=== PATIENT | male | born 1985 | race Caucasian/White ===

== ENCOUNTER 2019-02-15 12:56 | Observation (INO) ==
[2019-02-15] MEDS ORDERED: *HR* LORazepam 1 MG TABLET PO ONE (13:30)
[2019-02-15 13:45] LABS: Basophils % 0.3 %; Eosinophils % 0.4 %; Hematocrit 44.2 % (37.5-50.1); Hemoglobin 15.8 g/dL (12.9-16.9); Immature Granulocytes % 0.2 % (0-4); Lymphocytes # 2.2 K/mcL (0.6-4.6); Lymphocytes % 24.2 %; Mean Corpuscular HGB Conc 35.7 g/dL (31.6-35.5); Mean Corpuscular Hemoglobin 31.9 pg (28.0-33.3); Mean Corpuscular Volume 89.1 fL (83.0-100.0); Mean Platelet Volume 9.9 fL (9.4-12.4); Monocytes # 0.9 K/mcL (0.0-1.3); Monocytes % 9.2 %; Neutrophils # 6.1 K/mcL (1.6-8.9); Platelet Count 253 K/mcL (140-400); Red Blood Count 4.96 M/mcL (4.19-5.50); Red Cell Distribution Width 12.8 % (11.5-14.5); Segmented Neutrophils % 65.7 %
[2019-02-15 13:56] LABS: Bilirubin,Urine Negative (Negative); Blood,Urine Negative (Negative); Clarity,Urine Clear (Clear); Color,Urine Yellow (Yellow); Glucose,Urine (UA) Normal (Normal); Ketones,Urine 15 mg/dL (Negative); Leukocyte Esterase,Urine Small (Negative); Nitrite,Urine Negative (Negative); Protein,Urine 30 mg/dL (Neg-Trace); Specific Gravity,Urine 1.016 (1.010-1.025); Urobilinogen,Urine Normal (Normal)
[2019-02-15 14:01] LABS: Amphetamine Screen,Urine Positive ng/mL (Cutoff=1000); Barbiturate Screen,Urine Negative ng/mL (Cutoff=200); Benzodiazepines Screen,Urine Negative ng/mL (Cutoff=200); Cannabinoid Screen,Urine Negative ng/mL (Cutoff = 50); Cocaine Screen,Urine Negative ng/mL (Cutoff= 300); Opiate Screen,Urine Negative ng/mL (Cutoff=300); Phencyclidine Screen,Urine Negative ng/mL (Cutoff=25)
[2019-02-15 14:02] LABS: Bacteria,Urine None Seen per hpf (None-Few); Hyaline Casts,Urine None Seen per lpf (None-Few); RBC,Urine 0-3 per hpf (0-3); Squamous Epithelial Cell,Urine Few per lpf (None-Few); WBC,Urine 0-3 per hpf (0-3)
[2019-02-15 14:03] LABS: Acetaminophen < 10 mcg/mL (10-20); BUN/Creatinine Ratio 14 (6-26); Blood Urea Nitrogen 10 mg/dL (6-20); Carbon Dioxide 25 mEq/L (23-29); Chloride 99 mEq/L (98-107); Ethanol < 10 mg/dL (Less than 10); Glucose 104 mg/dL (70-105); Osmolality,Calculated 279 (280-300); Potassium 3.9 mEq/L (3.5-5.1); Salicylate < 2.5 mg/dL (15.0-30.0); Sodium 135 mEq/L (136-145); eGFR For Non-African Americans > 60 (> 60)
--- NOTE | 2019-02-15 14:06 | Emergency Department Note ---
Disposition Clinical Impression: Acute anxiety, Hallucinations Depression Qualifiers: Depression Type: unspecified Qualified Code(s): F32.9 - Major depressive disorder, single episode, unspecified Disposition: Admitted As Inpatient Condition: Good Time of Disposition: 17:51 General Adult HPI - General Chief complaint: ED Psychiatric Symptoms Stated complaint: Halluncinations Time Seen by Provider: 02/15/19 13:10 Source: patient Limitations: no limitations Nursing Notes Reviewed: Yes Vital Signs Reviewed: Yes - History of Present Illness HPI Narrative: Male patient with a history of snorting "ice" presenting to the emergency depa rtment complaining of feeling anxious. He presents with his mother. He states that he was clean and then used again yesterday. She reports that since then he has felt depressed. He denies any suicidal or homicidal ideation currently. He has not been clinically diagnosed with depression and does not take medication for it. He does report the last night he had feeling like his heart was racing right after he used however he is not felt that since. He denies any chest pain. He does report hallucinations. He states that he knows that they are hallucinations. He reports seeing people in trees entering [employer]. Patient's mother presents with them as well. He has been very conversant with her. He is redirectable however appears very agitated in the room. He is frequently standing up and walking around. He does however sit on the bed after you discussing this with him. He states that he would like to talk to our psychiatric team here at this time for his possible depression. We will do a psychiatric workup as well as a EKG and chest x-ray. We will provide patient with Ativan at this time for his agitation. Mother states that she does feel that he is safe at home. States that she does not think that he has a harm to his child who is at the house with him. However she is concerned about the depression as well like for him to speak to the psychiatric team. Pain Scale: 2 - Related Data Home Medications Medication Instructions Recorded Confirmed LevETIRAcetam [Keppra] 500 mg PO 1-2XD 06/30/17 06/30/17 Allergies Allergy/AdvReac Type Severity Reaction Status Date / Time No Known Allergies Allergy Verified 06/30/17 19:42 All systems ED: reviewed and negative except as stated. Review of Systems: As Per HPI Constitutional: Denies: fever Cardiovascular: Reports: palpitations. Denies: chest pain, syncope Respiratory: Denies: cough, dyspnea Gastrointestinal: Denies: abdominal pain, nausea, vomiting, diarrhea Musculoskeletal: Denies: back pain, neck pain Psychiatric: Reports: anxiety, depression, visual hallucinations. Denies: suicidal thoughts, homicidal thoughts Past Medical History - Past Medical History Attestation: Yes The following information was validated with the patient. Source: patient Medical history: Reports: seizures Surgical history: Reports: no surgical history Psychiatric history: Reports: no psych history - Social History Smoking Status: Current every day smoker Smokeless Tobacco Status: No Alcohol use: Reports: occasionally Drug use: Reports: marijuana, methamphetamine Physical Exam - General Limitations: no limitations General appearance: alert, in no apparent distress, anxious - Head Head exam: atraumatic, normocephalic, normal inspection - Eye Eye exam: Present: normal appearance, PERRL, EOMI - ENT ENT exam: normal exam, normal oropharynx, mucous membranes moist - Neck Neck exam: Present: normal inspection, full ROM, trachea midline - Chest Chest inspection: Present: normal inspection, symmetric chest wall rise - Respiratory Respiratory exam: Absent: respiratory distress - Extremities Exam Extremities exam: Present: normal inspection, full ROM - Neurological Exam Neurological exam: Present: alert, oriented X3, normal gait - Psychiatric Psychiatric exam: Present: agitated, anxious - Skin Skin exam: Present: warm, dry, intact, normal color. Absent: rash, cyanosis, diaphoresis Course Course Narrative: Patient denying suicidal homicidal ideation but is very pressured in his speech. Initially responded well to 2 of Ativan but then became very agitated again. He was given Zyprexa at that time. This also comp patient well. Lab workup is unremarkable. Ia did evaluate the patient and is requesting admission at this time. I feel this is reasonable. Patient is agreeable with this plan. Vital Signs Temperature 98.4 F 02/15/19 13:14 Pulse Rate 103 02/15/19 13:14 Respiratory Rate 16 02/15/19 13:14 Blood Pressure 117/86 02/15/19 13:14 O2 Sat by Pulse Oximetry 98 02/15/19 13:14 Temperature 98.4 F 02/15/19 13:14 Pulse Rate 103 02/15/19 13:14 Respiratory Rate 16 02/15/19 13:14 Blood Pressure 117/86 02/15/19 13:14 O2 Sat by Pulse Oximetry 98 02/15/19 13:14 Oxygen Delivery Oxygen Delivery Room Air Medical Decision Making - Medical Records Medical records reviewed: Yes I reviewed the patient's medical records. - Lab Data Lab results reviewed: Yes I reviewed the patient's lab results. Result diagrams: 02/15/19 13:31 02/15/19 13:31 Lab Results 02/15/19 02/15/19 02/15/19 Range/Units 13:31 13:31 13:37 WBC 9.2 (4.3-11.1) K/mcL RBC 4.96 (4.19-5.50) M/mcL Hgb 15.8 (12.9-16.9) g/dL Hct 44.2 (37.5-50.1) % MCV 89.1 (83.0-100.0) fL MCH 31.9 (28.0-33.3) pg MCHC 35.7 H (31.6-35.5) g/dL RDW 12.8 (11.5-14.5) % Plt Count 253 (140-400) K/mcL MPV 9.9 (9.4-12.4) fL Immature Gran % 0.2 (0-4) % Seg Neutrophils % 65.7 % Lymphocytes % 24.2 % Monocytes % 9.2 % Eosinophils % 0.4 % Basophils % 0.3 % Neutrophils # 6.1 (1.6-8.9) K/mcL Lymphocytes # 2.2 (0.6-4.6) K/mcL Monocytes # 0.9 (0.0-1.3) K/mcL Eosinophils # 0.0 (0.0-0.6) K/mcL Basophils # 0.0 (0.0-0.2) K/mcL Sodium 135 L (136-145) mEq/L Potassium 3.9 (3.5-5.1) mEq/L Chloride 99 (98-107) mEq/L Carbon Dioxide 25 (23-29) mEq/L BUN 10 (6-20) mg/dL Creatinine 0.71 (0.70-1.30) mg/dL Est GFR ( Amer) > 60 (> 60) Est GFR (Non-Af Amer) > 60 (> 60) BUN/Creatinine Ratio 14 (6-26) Glucose 104 (70-105) mg/dL Calculated Osmolality 279 L (280-300) Calcium 10.0 (8.6-10.3) mg/dL Urine Color Yellow (Yellow) Urine Clarity Clear (Clear) Urine pH 6.0 (5.0-8.0) pH Units Ur Specific [place] 1.016 (1.010-1.025) Urine Protein 30 H (Neg-Trace) mg/dL Urine Glucose (UA) Normal (Normal) mg/dL Urine Ketones 15 H (Negative) mg/dL Urine Blood Negative (Negative) Urine Nitrite Negative (Negative) Urine Bilirubin Negative (Negative) Urine Urobilinogen Normal (Normal) mg/dL Ur Leukocyte Esterase Small H (Negative) Urine Microscopic RBC 0-3 (0-3) per hpf Urine Microscopic WBC 0-3 (0-3) per hpf Ur Squamous Epith Cells Few (None-Few) per lpf Urine Bacteria None Seen (None-Few) per hpf Hyaline Casts None Seen (None-Few) per lpf Salicylates < 2.5 L (15.0-30.0) mg/dL Urine Opiates Screen (Pahdcm=471) ng/mL Acetaminophen < 10 L (10-20) mcg/mL Ur Barbiturates Screen (Uaauok=438) ng/mL Ur Phencyclidine Scrn (Cutoff=25) ng/mL Ur Amphetamines Screen (Iytcpx=2049) ng/mL U Benzodiazepines Scrn (Ezmyla=695) ng/mL Urine Cocaine Screen (Cutoff= 300) ng/mL U Marijuana (THC) Screen (Cutoff = 50) ng/mL Ur Drug Screen Interp Ethyl Alcohol < 10 (Less than 10) mg/dL 02/15/19 Range/Units 13:37 WBC (4.3-11.1) K/mcL RBC (4.19-5.50) M/mcL Hgb (12.9-16.9) g/dL Hct (37.5-50.1) % MCV (83.0-100.0) fL MCH (28.0-33.3) pg MCHC (31.6-35.5) g/dL RDW (11.5-14.5) % Plt Count (140-400) K/mcL MPV (9.4-12.4) fL Immature Gran % (0-4) % Seg Neutrophils % % Lymphocytes % % Monocytes % % Eosinophils % % Basophils % % Neutrophils # (1.6-8.9) K/mcL Lymphocytes # (0.6-4.6) K/mcL Monocytes # (0.0-1.3) K/mcL Eosinophils # (0.0-0.6) K/mcL Basophils # (0.0-0.2) K/mcL Sodium (136-145) mEq/L Potassium (3.5-5.1) mEq/L Chloride (98-107) mEq/L Carbon Dioxide (23-29) mEq/L BUN (6-20) mg/dL Creatinine (0.70-1.30) mg/dL Est GFR ( Amer) (> 60) Est GFR (Non-Af Amer) (> 60) BUN/Creatinine Ratio (6-26) Glucose (70-105) mg/dL Calculated Osmolality (280-300) Calcium (8.6-10.3) mg/dL Urine Color (Yellow) Urine Clarity (Clear) Urine pH (5.0-8.0) pH Units Ur Specific [place] (1.010-1.025) Urine Protein (Neg-Trace) mg/dL Urine Glucose (UA) (Normal) mg/dL Urine Ketones (Negative) mg/dL Urine Blood (Negative) Urine Nitrite (Negative) Urine Bilirubin (Negative) Urine Urobilinogen (Normal) mg/dL Ur Leukocyte Esterase (Negative) Urine Microscopic RBC (0-3) per hpf Urine Microscopic WBC (0-3) per hpf Ur Squamous Epith Cells (None-Few) per lpf Urine Bacteria (None-Few) per hpf Hyaline Casts (None-Few) per lpf Salicylates (15.0-30.0) mg/dL Urine Opiates Screen Negative (Zqyihx=079) ng/mL Acetaminophen (10-20) mcg/mL Ur Barbiturates Screen Negative (Ywhkot=549) ng/mL Ur Phencyclidine Scrn Negative (Cutoff=25) ng/mL Ur Amphetamines Screen Positive H (Eezbhm=1002) ng/mL U Benzodiazepines Scrn Negative (Xzykll=285) ng/mL Urine Cocaine Screen Negative (Cutoff= 300) ng/mL U Marijuana (THC) Screen Negative (Cutoff = 50) ng/mL Ur Drug Screen Interp See Below Ethyl Alcohol (Less than 10) mg/dL - Radiology Data Radiology results reviewed: Yes I reviewed the patient's radiology results. - EKG Data EKG #1 EKG attestation: Yes I reviewed and interpreted this EKG. EKG results narrative: Normal sinus rhythm at a rate of 84. WA interval is 141. Castration is 84. QT is 372. QTC is 440. No signs of acute ischemia. Does have some mild ST elevation in 23 aVF consistent with early repolarization. This was on previous EKG dated 06/30/2017 as well. Good R-wave progression. No other signs of acute ischemia. Attestation Statement - Attestation Attestation: I, Quintin Hernadez, examined this patient and my medical decision-making was reviewed with the ACCOUNTING BOOKKEEPER/PA/Advanced Practice Nurse/Resident Physician. I agree with the documented findings, disposition and treatment plan as described except to the extent set forth below. 33-year-old male presents to emergency department by mother for evaluation of visual and auditory hallucinations. Patient does admit to methamphetamine use. He has had these visual and auditory hallucinations with used before. Patient denies suicidal ideation or homicidal ideation. He seems very anxious during the initial evaluation. He is willing to stay for evaluation of his hallucinations. Patient believes that he sees people in trees and has paranoid delusions. Patient will be medically cleared and evaluated by behavioral health. Behavioral health evaluated the patient and recommended that he stay inpatient for further evaluation of his hallucinations. They were concerned that he might become aggressive and agitated towards the mother brought him in. There is also young child in the house where he is staying. Patient is comfortable with the plan for admission to hospital.
[2019-02-15] MEDS ORDERED: OLANZapine 5 MG TAB.RAPDIS PO STA (15:48)
[2019-02-15] MEDS ORDERED: Haloperidol Lactate 5 MG/ML VIAL IM PRN (18:38)
[2019-02-15] MEDS ORDERED: traZODone 50 MG TABLET PO PRN (18:38)
[2019-02-15] MEDS ORDERED: *HR* LORazepam 2 MG/ML VIAL IM PRN (18:38)
[2019-02-15] MEDS ORDERED: *HR* LORazepam 1 MG TABLET PO PRN (18:38)
[2019-02-15] MEDS ORDERED: hydrOXYzine pamoate 25 MG CAPSULE PO PRN (18:38)
[2019-02-15] MEDS ORDERED: Ibuprofen 400 MG TABLET PO PRN (18:38)
[2019-02-15] MEDS ORDERED: MOM Conc 10 ML UD.LIQ PO PRN (18:38)
[2019-02-15] MEDS ORDERED: Mag Hydrox/Al Hydrox/Simeth 30 ML UDC PO PRN (18:38)
--- NOTE | 2019-02-16 08:06 | Discharge Summary ---
Date of Encounter: 02/16/19 Time of Encounter: 08:06 History of Present Illness Chief complaint: "I took bad drugs" Admitted From: Emergency Dept History of Present Illness: Mr. Rendon is a 33 year old male Male patient with a history of snorting "ice" presenting to the emergency department complaining of feeling anxious. He presents with his mother. He states that he was clean and then used again yesterday. She reports that since then he has felt depressed. He denies any suicidal or homicidal ideation currently. He has not been clinically diagnosed with depression and does not take medication for it. He does report the last night he had feeling like his heart was racing right after he used however he is not felt that since. He denies any chest pain. He does report hallucinations. He states that he knows that they are hallucinations. He reports seeing people in trees entering costumes. Patient's mother presents with them as well. He has been very conversant with her. He is redirectable however appears very agitated in the room. He is frequently standing up and walking around. He does however sit on the bed after you discussing this with him. He required Ativan and Zyprexa in the emergency room to help calm down. This morning he is cleared from the effects of the drug. He reports that when he is high he sees things and hears things and gets very upset and agitated. He slept reports stressors including splitting up with his girlfriend 1 week ago and concerns that he might lose his job due to a dirty urine. He reports that he has sadness with decreased interests and some hopelessness but no suicidal thoughts, ideations, or plans. He has no homicidal ideations. He does not have any psychotic symptoms when he is not under the influence of drugs. He does not have any manic symptoms. He does have some attention problems including distractibility and lack of focus.. Past Med Surg Social Fam HX - Past Medical History Source: patient Medical history: seizures (These seem to be substance related) - Past Psychiatric History Psychiatric history: Reports: no psych history. Denies: prior suicide attempt, previous psychiatric hospitalization Past psychiatric history details: He reports that he has never been in a psychiatric hospital he has never received outpatient services. He has no prior suicide attempts but did have one episode where he was depressed and wrote suicide notes to his family but did not do anything to harm himself because he wants to live for his daughter. He has never been tried on psychiatric medications in the past Family psychiatric history: Yes Family Psychiatric History Details: He reports that his whole family has anxiety and his father is a methamphetamine addict Family History of Suicide: None - Past Surgical History Surgical History: no surgical history - Social History Smoking Status: Current every day smoker Packs per day: 2 Smokeless Tobacco Status: No Alcohol use: occasionally Drug use: opiates, marijuana, methamphetamine Additional substance use detail: He reports that he buys opiates daily from a friend to help control pain. He reports using methamphetamines yesterday and once or twice a week. He said he once tried to go to a Suboxone clinic but it was too far away from him. He reports that he uses 2-3 beers a few times a week. He has a remote history of benzodiazepine use he smokes 2 packs per day of cigarettes. Occupational status: employed Current living situation: Home, With Family Activity Level: Independent ambulation Recent Out of Country Travel Within the Last 8 Weeks: No Exposure or Possible Exposure to Illness During Travel: No Additional social history: He lives with his mother and his 11-year-old daughter. He has no other children. He has never been . He had a recent breakup with a girlfriend. He works at a [employer] and is concerned he might lose that job due to a positive drug test. Medications - Discharge Medications Prescriptions: BuPROPion XL (24 HR) [Wellbutrin Xl] 150 mg PO DAILY #30 tab.er.24h hydrOXYzine pamoate [HydrOXYzine Pamoate] 25 mg PO TID PRN #60 capsule PRN Reason: Anxiety LevETIRAcetam [Keppra] 500 mg PO 1-2XD 06/30/17 [History] BuPROPion XL (24 HR) [Wellbutrin Xl] 150 mg PO DAILY #30 tab.er.24h 02/16/19 [Rx] hydrOXYzine pamoate [HydrOXYzine Pamoate] 25 mg PO TID PRN #60 capsule 02/16/19 [Rx] Allergy/AdvReac Type Severity Reaction Status Date / Time No Known Allergies Allergy Verified 06/30/17 19:42 Review of Systems Constitutional: Denies: fever Eyes: Denies: eye pain Ears, Nose, Throat: Denies: ear pain Cardiovascular: Denies: chest pain Respiratory: Denies: dyspnea Gastrointestinal: Denies: abdominal pain Genitourinary male: Denies: urgency Musculoskeletal: Reports: joint swelling, joint pain Integumentary: Denies: rash Neurological: Denies: headache Psychiatric: Reports: depression Endocrine: Denies: fatigue Hematologic/Lymphatic: Denies: easy bleeding Allergic/Immunologic: Denies: facial swelling Exam - HEENT Head exam IM: Present: atraumatic Eye exam IM: Present: EOMI, normal appearance ENT exam IM: Present: normal exam - Neurological Neurological exam: Present: CN II-XII intact - Respiratory Respiratory exam IM: Absent: respiratory distress - GI/Abdominal GI/Abdominal exam IM: Absent: tenderness - Extremities Extremities exam IM: Present: full ROM - Skin Skin exam IM: Present: dry - Constitutional Vitals: Temp Pulse Resp BP Pulse Ox 98 F 66 16 100/72 99 02/15/19 18:45 02/15/19 18:45 02/15/19 18:45 02/15/19 18:45 02/15/19 18:45 General appearance: age & developmentally appropriate, well-groomed, well- nourished - Musculoskeletal Gait: normal Station: relaxed Strength & Tone: normal for patient - Psychiatric Patient Orientation: Yes Person, Yes Time, Yes Place Level of alertness: Alert Behavior: calm, cooperative Psychomotor activity: Normal Eye Contact: Maintains Eye Contact Mood Description: Euthymic/stable Patient description of mood: good Affect description: congruent with mood, full range Speech Volume: Normal Speech pattern: normal rate, normal rhythm, normal tone, fluent, spontaneous Language & Vocabulary: consistent with education Thought Process: Linear, Goal Oriented Thought Content: No Suicidal ideation, No Homicidal ideation, No Overt delusions Perceptual Disturbances: No Auditory hallucinations, No Visual hallucinations Attention Span Ability: Capable of Focused Attention Memory Description: Grossly Intact Patient Reliability: Reliable Historian Fund of knowledge: Yes abstraction ability, Yes average, Yes aware of current events Intelligence Estimate: Average Judgment: Good Insight: Full Results - Drug Levels and Toxicology Drug Levels and Toxicology: Drug Levels and Toxicity 02/15/19 02/15/19 13:31 13:37 Urine Opiates Screen Negative Acetaminophen < 10 L Ur Barbiturates Screen Negative Ur Phencyclidine Scrn Negative Ur Amphetamines Screen Positive H U Benzodiazepines Scrn Negative Urine Cocaine Screen Negative U Marijuana (THC) Screen Negative Ethyl Alcohol < 10 Laboratory Results - last 72 hr 02/15/19 02/15/19 02/15/19 13:31 13:31 13:37 WBC 9.2 RBC 4.96 Hgb 15.8 Hct 44.2 MCV 89.1 MCH 31.9 MCHC 35.7 H RDW 12.8 Plt Count 253 MPV 9.9 Immature Gran % 0.2 Seg Neutrophils % 65.7 Lymphocytes % 24.2 Monocytes % 9.2 Eosinophils % 0.4 Basophils % 0.3 Neutrophils # 6.1 Lymphocytes # 2.2 Monocytes # 0.9 Eosinophils # 0.0 Basophils # 0.0 Sodium 135 L Potassium 3.9 Chloride 99 Carbon Dioxide 25 BUN 10 Creatinine 0.71 Est GFR ( Amer) > 60 Est GFR (Non-Af Amer) > 60 BUN/Creatinine Ratio 14 Glucose 104 Calculated Osmolality 279 L Calcium 10.0 Urine Color Yellow Urine Clarity Clear Urine pH 6.0 Ur Specific [place] 1.016 Urine Protein 30 H Urine Glucose (UA) Normal Urine Ketones 15 H Urine Blood Negative Urine Nitrite Negative Urine Bilirubin Negative Urine Urobilinogen Normal Ur Leukocyte Esterase Small H Urine Microscopic RBC 0-3 Urine Microscopic WBC 0-3 Ur Squamous Epith Cells Few Urine Bacteria None Seen Hyaline Casts None Seen Salicylates < 2.5 L Urine Opiates Screen Acetaminophen < 10 L Ur Barbiturates Screen Ur Phencyclidine Scrn Ur Amphetamines Screen U Benzodiazepines Scrn Urine Cocaine Screen U Marijuana (THC) Screen Ur Drug Screen Interp Ethyl Alcohol < 10 02/15/19 13:37 WBC RBC Hgb Hct MCV MCH MCHC RDW Plt Count MPV Immature Gran % Seg Neutrophils % Lymphocytes % Monocytes % Eosinophils % Basophils % Neutrophils # Lymphocytes # Monocytes # Eosinophils # Basophils # Sodium Potassium Chloride Carbon Dioxide BUN Creatinine Est GFR ( Amer) Est GFR (Non-Af Amer) BUN/Creatinine Ratio Glucose Calculated Osmolality Calcium Urine Color Urine Clarity Urine pH Ur Specific [place] Urine Protein Urine Glucose (UA) Urine Ketones Urine Blood Urine Nitrite Urine Bilirubin Urine Urobilinogen Ur Leukocyte Esterase Urine Microscopic RBC Urine Microscopic WBC Ur Squamous Epith Cells Urine Bacteria Hyaline Casts Salicylates Urine Opiates Screen Negative Acetaminophen Ur Barbiturates Screen Negative Ur Phencyclidine Scrn Negative Ur Amphetamines Screen Positive H U Benzodiazepines Scrn Negative Urine Cocaine Screen Negative U Marijuana (THC) Screen Negative Ur Drug Screen Interp See Below Ethyl Alcohol - Labs Labs: Laboratory Last Values WBC 9.2 K/mcL (4.3-11.1) 02/15/19 13:31 RBC 4.96 M/mcL (4.19-5.50) 02/15/19 13:31 Hgb 15.8 g/dL (12.9-16.9) 02/15/19 13:31 Hct 44.2 % (37.5-50.1) 02/15/19 13:31 MCV 89.1 fL (83.0-100.0) 02/15/19 13:31 MCH 31.9 pg (28.0-33.3) 02/15/19 13:31 MCHC 35.7 g/dL (31.6-35.5) H 02/15/19 13:31 RDW 12.8 % (11.5-14.5) 02/15/19 13:31 Plt Count 253 K/mcL (140-400) 02/15/19 13:31 MPV 9.9 fL (9.4-12.4) 02/15/19 13:31 Immature Gran % 0.2 % (0-4) 02/15/19 13:31 Seg Neutrophils % 65.7 % 02/15/19 13:31 Lymphocytes % 24.2 % 02/15/19 13:31 Monocytes % 9.2 % 02/15/19 13:31 Eosinophils % 0.4 % 02/15/19 13:31 Basophils % 0.3 % 02/15/19 13:31 Neutrophils # 6.1 K/mcL (1.6-8.9) 02/15/19 13:31 Lymphocytes # 2.2 K/mcL (0.6-4.6) 02/15/19 13:31 Monocytes # 0.9 K/mcL (0.0-1.3) 02/15/19 13:31 Eosinophils # 0.0 K/mcL (0.0-0.6) 02/15/19 13:31 Basophils # 0.0 K/mcL (0.0-0.2) 02/15/19 13:31 Sodium 135 mEq/L (136-145) L 02/15/19 13:31 Potassium 3.9 mEq/L (3.5-5.1) 02/15/19 13:31 Chloride 99 mEq/L (98-107) 02/15/19 13:31 Carbon Dioxide 25 mEq/L (23-29) 02/15/19 13:31 BUN 10 mg/dL (6-20) 02/15/19 13:31 Creatinine 0.71 mg/dL (0.70-1.30) 02/15/19 13:31 Est GFR ( Amer) > 60 (> 60) 02/15/19 13:31 Est GFR (Non-Af Amer) > 60 (> 60) 02/15/19 13:31 BUN/Creatinine Ratio 14 (6-26) 02/15/19 13:31 Glucose 104 mg/dL (70-105) 02/15/19 13:31 Calculated Osmolality 279 (280-300) L 02/15/19 13:31 Calcium 10.0 mg/dL (8.6-10.3) 02/15/19 13:31 Urine Color Yellow (Yellow) 02/15/19 13:37 Urine Clarity Clear (Clear) 02/15/19 13:37 Urine pH 6.0 pH Units (5.0-8.0) 02/15/19 13:37 Ur Specific [place] 1.016 (1.010-1.025) 02/15/19 13:37 Urine Protein 30 mg/dL (Neg-Trace) H 02/15/19 13:37 Urine Glucose (UA) Normal mg/dL (Normal) 02/15/19 13:37 Urine Ketones 15 mg/dL (Negative) H 02/15/19 13:37 Urine Blood Negative (Negative) 02/15/19 13:37 Urine Nitrite Negative (Negative) 02/15/19 13:37 Urine Bilirubin Negative (Negative) 02/15/19 13:37 Urine Urobilinogen Normal mg/dL (Normal) 02/15/19 13:37 Ur Leukocyte Esterase Small (Negative) H 02/15/19 13:37 Urine Microscopic RBC 0-3 per hpf (0-3) 02/15/19 13:37 Urine Microscopic WBC 0-3 per hpf (0-3) 02/15/19 13:37 Ur Squamous Epith Cells Few per lpf (None-Few) 02/15/19 13:37 Urine Bacteria None Seen per hpf (None-Few) 02/15/19 13:37 Hyaline Casts None Seen per lpf (None-Few) 02/15/19 13:37 Salicylates < 2.5 mg/dL (15.0-30.0) L 02/15/19 13:31 Urine Opiates Screen Negative ng/mL (Gcybgn=098) 02/15/19 13:37 Acetaminophen < 10 mcg/mL (10-20) L 02/15/19 13:31 Ur Barbiturates Screen Negative ng/mL (Veofcu=402) 02/15/19 13:37 Ur Phencyclidine Scrn Negative ng/mL (Cutoff=25) 02/15/19 13:37 Ur Amphetamines Screen Positive ng/mL (Vbbnrd=5874) H 02/15/19 13:37 U Benzodiazepines Scrn Negative ng/mL (Biddzq=447) 02/15/19 13:37 Urine Cocaine Screen Negative ng/mL (Cutoff= 300) 02/15/19 13:37 U Marijuana (THC) Screen Negative ng/mL (Cutoff = 50) 02/15/19 13:37 Ur Drug Screen Interp See Below 02/15/19 13:37 Ethyl Alcohol < 10 mg/dL (Less than 10) 02/15/19 13:31 Diagnosis - Discharge Diagnosis (1) Substance-induced psychotic disorder with hallucinations Status: Acute (2) Depression Status: Acute Qualifiers: Depression Type: major depressive disorder Major depression recurrence: recurrent Active/Remission status: currently active Major depression episode severity: moderate Qualified Code(s): F33.1 - Major depressive disorder, recurrent, moderate Assessment and Plan - Patient/Caregiver Discharge Instructions Activity: resume usual activities as tolerated, return to work Diet: regular diet Additional Instructions: Continue current medications. Follow up with outpatient mental health. Encourage continued therapy in a group or individual setting. The patient was discharged to home. - Follow up Plan Follow up with: NONE,PCP [Primary Care Provider] - Functional capacity at discharge: independent ambulation Overall status at discharge: Stable Disposition: Home, Self-Care Provider Date of admission: 02/15/19 18:20 Primary care physician: LATHA BUI Discharging clinician: Mamie Magallon [facility] Hospital course: Mr. Rendon is a 33 year old male who was admitted for 519 due to substance- induced psychosis. He received Zyprexa and Ativan in the emergency room. He received Wellbutrin for his depression and attention problems while on our unit. He was offered as needed Vistaril for anxiety. Patient was educated of diagnosis and the risk-benefit side effects of this alternative treatment options and was monitored for responsiveness and side effects. Mood anxiety sleep and appetite interest improved as did future orientation. Self-harm thoughts subsided, thinking cleared, psychosis resolved, and mood stabilized. Patient was able to attend both individual and group therapy sessions as well as meet with the psychiatrist daily and urged to discuss any medication or treatment issues or other concerns. The patient was educated primarily by verbal means about their diagnosis and manifestations in their life. The option for treatment including group and individual therapy programming was offered to the patient in addition to the use of medications with all their potential risks, benefits, and side effects as well as the risks of not taking medication and non-adhereance were discussed with the patient at length. The patient was given the opportunity to ask questions and was noted to participate in the treatment in the planning process. The patient felt ready and eager to be discharged from the inpatient psychiatric unit to continue on with treatment as an outpatient. The patient agreed that is they were safe for this disposition. The patient was considered to be able to participate in informed consent and decision making with respect to medical, legal, and financial issues of the time of discharge. At the time of discharge the patient adamantly denied any concerns for lethality including suicidal or homicidal thoughts ideations or plans and was future oriented toward ongoing mental health care, medical follow-up and sobriety. Time spent discussing smoking cessation with patient: 3 to 10 minutes Does patient wish to continue nicotine replacement upon disc: No - Time Spent with Patient Total time spent providing and/or coordinating discharge services: 45 Greater than 30 minutes Specific discharge activities: Interval history reviewed. Available labs reviewed . Psychotherapy provided. Patient had an opportunity to ask questions and address concerns. Patient was in agreement with the treatment plan. The risks benefits and side effects of medications were discussed with the patient, including alternatives and treatment. The patient was educated on the abstaining from any alcohol or illicit substances, following up with all scheduled appointments, and taking all medications as prescribed. The patient was educated on 90 meetings in 90 days and to find a sponsor. Procedures - Procedures Procedures: Medication Management, Crisis Stabilization, Supportive Therapy, Group Therapy, Psychoeducational Therapy Quality - Multiple Antipsychotics Patient discharged on 2 or more antipsychotic medications: No
[2019-02-16] MEDS ORDERED: Nicotine 2 MG GUM BC PRN (08:13)
[2019-02-16] MEDS ORDERED: BuPROPion XL (24 HR) 150 MG TABLET PO SCH (09:00)
[2019-02-16 09:08] VITALS: BP 122/69
--- NOTE | 2019-02-16 21:23 | Electrocardiograph Report ---
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
== END 2019-02-16 09:35 | disposition home or self-care (01) ==
LOC: EMEROOARM 12:56 → 1ANU 12:56
PROVIDERS: ADMIT Psychiatry & Neurology Psychiatry; ATTEND Psychiatry & Neurology Psychiatry

== ENCOUNTER 2021-12-17 22:47 | Observation (INO) ==
[2021-12-18] MEDS ORDERED: 0.9 % Sodium Chloride 1,000 ML IVC SCH (03:45)
[2021-12-18] MEDS ORDERED: Ondansetron 4 MG/2 ML VIAL IVP PRN ×2 (03:55→11:37)
[2021-12-18] MEDS ORDERED: Piperacillin/Tazobactam 3.375 GM in 0.9 % Sodium Chloride Mini Bag 100 ML IVPB SCH (06:00)
[2021-12-18] MEDS ORDERED: *HR* Midazolam HCl 2 MG/2 ML VIAL ONE (08:18)
[2021-12-18] MEDS ORDERED: *HR* FentaNYL (PF) 100 MCG/2 ML VIAL ONE (08:18)
[2021-12-18] MEDS ORDERED: *HR* Propofol 200 MG/20 ML VIAL IVP ONE (08:18)
[2021-12-18] MEDS ORDERED: Ondansetron 4 MG/2 ML VIAL ONE (08:32)
[2021-12-18] MEDS ORDERED: Lidocaine -MPF 2% 5 ML VIAL ONE (08:32)
[2021-12-18] MEDS ORDERED: *HR* Rocuronium Bromide 50 MG/5 ML VIAL ONE (08:32)
[2021-12-18] MEDS ORDERED: Lidocaine HCL 4 ML Topical Solution (Laryng-O-Jet Kit Sterile Pak) TP ONE (08:32)
[2021-12-18] MEDS ORDERED: *HR* Promethazine 25 MG/ML VIAL IVPB PRN (08:38)
[2021-12-18] MEDS ORDERED: *HR* HYDROmorphone 2 MG TABLET PO PRN (08:38)
[2021-12-18] MEDS ORDERED: Famotidine 20 MG/2 ML VIAL IVP ONE (08:38)
[2021-12-18] MEDS ORDERED: Pregabalin 75 MG CAPSULE PO ONE (08:38)
[2021-12-18] MEDS ORDERED: *HR* Labetalol 20 MG/4 ML SYRINGE IVP PRN (08:38)
[2021-12-18] MEDS ORDERED: Acetaminophen IV 1,000 MG/100 ML BAG IVPB ONE ×3 (08:38→21:30)
[2021-12-18] MEDS ORDERED: *HR* HYDROmorphone (PF) 1 MG/ML SYRINGE IVP PRN (08:38)
[2021-12-18] MEDS ORDERED: *HR* OxyCODONE Immed Rel 5 MG TABLET PO PRN (08:38)
[2021-12-18] MEDS ORDERED: cloNIDine HCL 0.1 MG TABLET ONE (09:02)
[2021-12-18] MEDS ORDERED: Ketamine HCL *QUVA* 50mg (1mL) SYRINGE ONE (09:02)
[2021-12-18] MEDS ORDERED: Famotidine 20 MG/2 ML VIAL ONE (09:02)
[2021-12-18] MEDS ORDERED: cloNIDine HCL 0.1 MG TABLET PO PRN (09:05)
[2021-12-18] MEDS ORDERED: CefOXitin 1,000 MG VIAL ONE (09:14)
[2021-12-18] MEDS ORDERED: Sugammadex Sodium 200 MG/2 ML VIAL IV ONE (10:42)
[2021-12-18] MEDS ORDERED: Ketorolac 30 MG/ML VIAL ONE (10:54)
[2021-12-18] MEDS ORDERED: *HR* OxyCODONE/APAP 5/325 TABLET PO PRN (11:37)
[2021-12-18] MEDS: 0.9 % Sodium Chloride 1,000 ML IVC SCH (11:50)
[2021-12-18] MEDS: Piperacillin/Tazobactam 3.375 GM in 0.9 % Sodium Chloride Mini Bag 100 ML IVPB SCH ×2 (14:11→22:30)
[2021-12-19] MEDS: Ibuprofen 400 MG TABLET PO SCH ×2 (00:04→07:54)
[2021-12-19] MEDS: 0.9 % Sodium Chloride 1,000 ML IVC SCH (05:22)
[2021-12-19] MEDS: Piperacillin/Tazobactam 3.375 GM in 0.9 % Sodium Chloride Mini Bag 100 ML IVPB SCH (05:50)
[2021-12-19 08:16] VITALS: BP 114/67; PULSE 68; TEMP 97.4; O2SAT 98
== END 2021-12-19 13:13 | disposition home or self-care (01) ==
LOC: 3BNU
PROVIDERS: ADMIT Surgery; ATTEND Surgery